=== PATIENT | male | born 1995 | race Caucasian/White ===

== ENCOUNTER 2021-06-03 21:00 | Emergency (ER) | payer BC, OTHER ==
[~2021-06-03 21:00] MED LIST: BENTYL 20MG TAB20 MG PO; PRILOSEC OTC20 MG PO; ZOFRAN4 MG PO
[2021-06-04 04:30] LABS: RED BLOOD COUNT 4.78 M/UL (4.20-5.50); WHITE BLOOD COUNT 8.7 K/UL (4.5-11.0)
[2021-06-04 04:31] LABS: BUN/CREATININE RATIO 18 (0-10)
== END 2021-06-04 05:55 | disposition home or self-care (01) ==
LOC: ER1 21:00
PROVIDERS: Family Medicine
DX: R07.89 Other chest pain (principal); Z88.0 Allergy status to penicillin; Z79.899 Other long term (current) drug therapy
CPT/HCPCS: 71045; 80053; 82550; 82553; 83874; 84484; 85025; 93005; 99285